=== PATIENT | male | born 1980 | race Caucasian/White ===

== ENCOUNTER 2024-05-02 08:56 | Day surgery (SDC) | payer BC ==
[2024-05-02] MEDS ORDERED: Naloxone 0.4 MG/ML SDV IVPUSH PRN (09:23)
[2024-05-02 09:42] LABS: BASOPHILS ABSOLUTE AUTO 0.04 K/uL (0.00-0.10); BASOPHILS PERCENT AUTO 0.3 % (0.1-1.3); EOSINOPHILS PERCENT AUTO 0.1 % (0.0-5.4); HEMATOCRIT 42.4 % (38.4-49.7); HEMOGLOBIN 14.7 g/dL (12.9-16.9); IMMATURE GRAN ABSOLUTE AUTO 0.07 K/uL (0.00-0.23); IMMATURE GRAN PERCENT AUTO 0.5 % (0.0-0.7); LYMPHOCYTES PERCENT AUTO 6.7 % (11.4-47.7); MEAN CORPUSCULAR HEMOGLOBIN 30.8 pg (31.6-35.5); MEAN CORPUSCULAR HGB CONC 34.7 g/dL (31.6-35.5); MEAN CORPUSCULAR VOLUME 88.9 fL (81.4-99.0); MONOCYTES ABSOLUTE AUTO 0.55 K/uL (0.20-0.90); MONOCYTES PERCENT AUTO 4.1 % (3.3-12.6); NEUTROPHILS ABSOLUTE AUTO 11.78 K/uL (1.0-7.6); NEUTROPHILS PERCENT AUTO 88.3 % (40.0-78.1); PLATELET COUNT,PLT 209 K/uL (130-375); RED BLOOD CELL COUNT 4.77 M/uL (4.14-5.76); WHITE BLOOD CELL COUNT,WBC 13.4 K/uL (3.2-11.0)
[2024-05-02] MEDS: Sodium Chloride 0.9% 1,000 ML IV ONE (09:45)
[2024-05-02] MEDS: HYDROmorphone 0.5 MG/0.5 ML Syringe IVPUSH ONE ×3 (09:45→15:40)
[2024-05-02 09:46] LABS: EOSINOPHILS ABSOLUTE AUTO 0.02 K/uL (0.00-0.40)
[2024-05-02 10:04] LABS: A/G RATIO 1.2 (1.2-2.2); ALANINE AMINOTRANSFERASE,ALT 39 U/L (12-78); ALBUMIN 4.2 g/dL (3.4-5.0); ALKALINE PHOSPHATASE 71 U/L (46-116); ASPARTATE AMNIOTRANSFERASE,AST 22 U/L (15-37); BILIRUBIN TOTAL 1.1 mg/dL (0.2-1.0); BLOOD UREA NITROGEN,BUN 23 mg/dL (7-18); C-REACTIVE PROTEIN 0.52 mg/dL (<0.50); CARBON DIOXIDE,CO2 27 mmol/L (21-32); CHLORIDE,CL 104 mmol/L (100-108); CREATININE 1.2 mg/dL (0.8-1.3); EST CRCL DRUG DOSING (CG) 78.56 mL/min; ESTIMATED GFR 76 mL/min (>60); GLUCOSE RANDOM 131 mg/dL (74-106); POTASSIUM,K 4.4 mmol/L (3.6-5.2); PROTEIN TOTAL,TP 7.6 g/dL (6.4-8.2); SODIUM,NA 139 mmol/L (140-148)
[2024-05-02 10:10] LABS: ANION GAP 12.4 mmol/L (5.0-14.0)
[2024-05-02 10:49] LABS: APPEARANCE,URINE SLIGHTLY CLOUDY (CLEAR); BILIRUBIN,URINE NEGATIVE (NEGATIVE); COLOR,URINE YELLOW (YELLOW); GLUCOSE,URINE NEGATIVE (NEGATIVE); KETONES,URINE NEGATIVE (NEGATIVE); LEUKOCYTE ESTERASE,URINE NEGATIVE (NEGATIVE); NITRITE,URINE NEGATIVE (NEGATIVE); OCCULT BLOOD,URINE NEGATIVE (NEGATIVE); PROTEIN,URINE NEGATIVE (NEGATIVE); UROBILINOGEN,URINE 0.2 EU/dL (0.2-1.0)
[2024-05-02 10:57] LABS: AMORPHOUS SEDIMENT,URINE MANY; BACTERIA,URINE NOT SEEN; EPITHELIAL CELLS,URINE FEW; MUCUS,URINE MODERATE; RBC,URINE NOT SEEN (0-5); WBC,URINE NOT SEEN (0-5)
[2024-05-02] MEDS: Iopamidol 612 MG/ML 100 ML Bottle IV SCH (12:05)
[2024-05-02] MEDS: Sodium Chloride 0.9% 80 ML IV SCH (12:05)
[2024-05-02] MEDS: Piperacillin/Tazobactam 3.375 GM in Sodium Chloride 0.9% 50 ML IV SCH (14:29)
[2024-05-02] MEDS: Ondansetron 4 MG/2 ML SDV IVPUSH ONE (14:35)
[2024-05-02] MEDS ORDERED: Ondansetron 4 MG/2 ML SDV ONE (15:43)
[2024-05-02] MEDS ORDERED: Succinylcholine 200 MG/10 ML MDV ONE (15:43)
[2024-05-02] MEDS ORDERED: Propofol 200 MG/20 ML SDV ONE (15:43)
[2024-05-02] MEDS ORDERED: Neostigmine Methylsulfate 10 MG/10 ML MDV ONE (15:43)
[2024-05-02] MEDS ORDERED: Dexamethasone 4 MG/ML SDV ONE (15:43)
[2024-05-02] MEDS ORDERED: Rocuronium 50 MG/5 ML Vial ONE (15:43)
[2024-05-02] MEDS ORDERED: Glycopyrrolate 0.2 MG/ML 5 ML MDV ONE (15:43)
[2024-05-02] MEDS ORDERED: fentaNYL 250 MCG/5 ML SDV ONE ×2 (15:44→16:36)
[2024-05-02] MEDS ORDERED: Lidocaine 1% 2 ML ONE (15:46)
[2024-05-02] MEDS ORDERED: Morphine 2 MG/ML SYRINGE IVPUSH PRN (15:52)
[2024-05-02] MEDS ORDERED: Acetaminophen/oxyCODONE 325-5 MG Tab PO PRN (15:52)
[2024-05-02] MEDS ORDERED: Piperacillin/Tazobactam 4.5 GM in Sodium Chloride 0.9% 100 ML IV ONE (16:00)
[2024-05-02] MEDS: Piperacillin/Tazobactam 4.5 GM in Sodium Chloride 0.9% 100 ML IV ONE (16:32)
[2024-05-02] MEDS: Bupivacaine 0.5%/EPINEPHrine 1:200,000 50 ML MDV ONE (17:00)
[2024-05-02] MEDS: Dextrose 5%-Lactated Ringers 1,000 ML IV SCH (18:37)
[2024-05-02] MEDS: Acetaminophen 325 MG Tab PO PRN (20:13)
[2024-05-02] MEDS: Heparin Sodium 5,000 Units/ML Vial SUBCUT SCH (20:26)
[2024-05-02] MEDS: Lisinopril 10 MG Tab PO SCH (20:27)
[2024-05-03] MEDS: Acetaminophen 325 MG Tab ONE (04:25)
[2024-05-03] MEDS: Ibuprofen 600 MG Tab PO PRN (07:04)
[2024-05-03] MEDS ORDERED: Piperacillin/Tazobactam/Dext 4.5 GM in Premix Bag 1 BAG IV SCH (08:00)
== END 2024-05-03 08:51 | disposition home or self-care (01) ==
LOC: JP.ED 08:56 → JP.SDS 15:58 → JP.MS 15:59 → JP.SDS 05-03 08:51
PROVIDERS: ATTEND Surgery
DX: K35.80 Unspecified acute appendicitis (principal); I10 Essential (primary) hypertension; Z88.1 Allergy status to other antibiotic agents; Z91.013 Allergy to seafood
CPT/HCPCS: 00840; 36415; 44970; 74177; 80053; 81001; 83690; 85025; 86140; 88304; 96361; 96365; 96375; 96376; 99285; A9270; J0330; J1100; J1170; J1596; J1644; J2405; J2543; J2704; J2710; J3010; J3490; J7030; J7121; Q9967; 99284